=== PATIENT | male | born 1985 | race African-American/Black ===

== ENCOUNTER 2019-01-27 12:56 | Inpatient (IN) | payer OTHER ==
[2019-01-27] MEDS ORDERED: SODIUM CHLORIDE 0.9% 1,000 ML IV ONE (13:45)
[2019-01-27] MEDS ORDERED: KETOROLAC 30 MG/ML 1 ML VIAL IVP STA (13:45)
[2019-01-27] MEDS: SODIUM CHLORIDE 0.9% 1,000 ML IV SCH ×2 (14:13→23:38)
[2019-01-27 14:18] LABS: Basophils # (A) 0.1 k/uL (0-0.2); Basophils % (A) 1 %; Eosinophils # (A) 0.3 k/uL (0-0.7); Eosinophils % (A) 3 %; HCT 40.5 % (39.0-53.0); HGB 13.3 gm/dL (13.0-17.5); Lymphocytes # (A) 2.5 k/uL (1.0-4.8); Lymphocytes % (A) 25 %; MCH 31.7 pg (25.0-35.0); MCHC 32.8 g/dL (31.0-37.0); MCV 96.5 fL (80.0-100.0); Mean Platelet Volume 6.7; Monocytes # (A) 0.5 k/uL (0-1.0); Monocytes % (A) 5 %; Neutrophils # (A) 6.5 k/uL (1.3-7.7); Neutrophils % (A) 65 %; Platelet Count 458 k/uL (150-450); RDW 15.5 % (11.5-15.5)
[2019-01-27 14:30] LABS: ALT 18 U/L (21-72); AST 27 U/L (17-59); African American GFR (CKD) >90 (>60 ml/min/1.73 sqM); Albumin 3.9 g/dL (3.5-5.0); Alkaline Phosphatase 86 U/L (38-126); Anion Gap 7 mmol/L; Blood Urea Nitrogen 12 mg/dL (9-20); Calcium 9.5 mg/dL (8.4-10.2); Carbon Dioxide 24 mmol/L (22-30); Chloride 107 mmol/L (98-107); Glucose 102 mg/dL (74-99); Non-African American GFR(CKD) >90 (>60 ml/min/1.73 sqM); Potassium 4.5 mmol/L (3.5-5.1); Sodium 138 mmol/L (137-145); Total Bilirubin 0.2 mg/dL (0.2-1.3); Total Protein 7.3 g/dL (6.3-8.2)
--- NOTE | 2019-01-27 14:34 | ED ---
Wound/Laceration HPI - General Chief Complaint: Wound/Laceration Stated Complaint: rt foot infection Time Seen by Provider: 01/27/19 13:16 Source: patient, RN notes reviewed, old records reviewed Mode of arrival: ambulatory Limitations: no limitations - History of Present Illness Initial Comments: Patient is a 34-year-old male with a history of callus over his right foot. Patient reports his callus for quite some time. Patient reports over the past 3 weeks has noticed increased pain and swelling over the fifth metatarsal. Patient was sent from delivery table operator Dr. Rinaldi for concern for osteomyelitis. Patient is not a diabetic. He's had a history of chronic calluses and feet problems. He's had surgery on his feet before once by Dr. Barrera many years ago. Patient reports that he is unable to walk on his foot normally due to the pain and swelling. - Related Data Home Medications Medication Instructions Recorded Confirmed Cephalexin [Keflex] 500 mg PO Q6HR 01/27/19 01/27/19 Ibuprofen [Motrin Ib] 400 mg PO BID PRN 01/27/19 01/27/19 Allergies Allergy/AdvReac Type Severity Reaction Status Date / Time No Known Allergies Allergy Verified 01/27/19 14:21 Review of Systems ROS Statement: Those systems with pertinent positive or pertinent negative responses have been documented in the HPI. ROS Other: All systems not noted in ROS Statement are negative. Past Medical History Past Medical History: Hypertension History of Any Multi-Drug Resistant Organisms: None Reported Past Surgical History: Orthopedic Surgery Past Psychological History: No Psychological Hx Reported Smoking Status: Current every day smoker Past Alcohol Use History: Daily Past Drug Use History: Marijuana General Exam - General Exam Comments Initial Comments: This is a 34-year-old male. Alert and oriented. Limitations: no limitations General appearance: alert, in no apparent distress Head exam: Present: atraumatic, normocephalic, normal inspection Eye exam: Present: normal appearance ENT exam: Present: normal exam, mucous membranes moist Neck exam: Present: normal inspection. Absent: tenderness, meningismus, lymph adenopathy Respiratory exam: Present: normal lung sounds bilaterally. Absent: respiratory distress, wheezes, rales, rhonchi, stridor Cardiovascular Exam: Present: regular rate, normal rhythm, normal heart sounds. Absent: systolic murmur, diastolic murmur, rubs, gallop, clicks GI/Abdominal exam: Present: soft, normal bowel sounds. Absent: distended, tenderness, guarding, rebound, rigid Extremities exam: Present: full ROM, normal capillary refill. Absent: normal inspection, tenderness, pedal edema, joint swelling, calf tenderness Right Knee exam: Present: normal inspection, full ROM Lower Leg exam: Present: normal inspection, full ROM Ankle exam: Present: normal inspection, full ROM Foot/Toe exam: Present: swelling (over plantar 5th metatarsal ), erythema. Absent: normal inspection Gait: observed and limited by pain Psychiatric exam: Present: normal affect, normal mood Course Vital Signs 01/27/19 01/27/19 01/27/19 13:10 14:14 15:00 Temperature 98.7 F Pulse Rate 81 74 76 Respiratory 20 18 18 Rate Blood Pressure 150/81 120/90 117/77 O2 Sat by Pulse 99 98 98 Oximetry 01/27/19 16:21 Temperature 98.1 F Pulse Rate 69 Respiratory 18 Rate Blood Pressure 124/91 O2 Sat by Pulse 100 Oximetry Medical Decision Making - Medical Decision Making This is a 34-year-old male presents today for evaluation with complaints of right foot plantar aspect over the fifth metatarsal abscess or concern for infection. He was sent by podiatry for concern for osteomyelitis. This time Patient has a fluctuant area over the plantar aspect of the fifth metatarsal. All labs are reviewed and unremarkable. X-ray showed evidence of small foreign body with subcutaneous air. CT shows evidence of the plantar foot ulceration with fluid collection may be related to a small abscess measuring 3.1 cm. Pa tient at this times was started on Kefzol IV V. Patient case discussed with Alton Diane, recommended admit to general medicine with vascular and ortho along consult. Patient is agreeable to treatment plan. - Lab Data Result diagrams: 01/27/19 14:00 01/27/19 14:00 Lab Results 01/27/19 01/27/19 01/27/19 Range/Units 14:00 14:00 14:00 WBC 10.0 (3.8-10.6) k/uL RBC 4.20 L (4.30-5.90) m/uL Hgb 13.3 (13.0-17.5) gm/dL Hct 40.5 (39.0-53.0) % MCV 96.5 (80.0-100.0) fL MCH 31.7 (25.0-35.0) pg MCHC 32.8 (31.0-37.0) g/dL RDW 15.5 (11.5-15.5) % Plt Count 458 H (150-450) k/uL Neutrophils % 65 % Lymphocytes % 25 % Monocytes % 5 % Eosinophils % 3 % Basophils % 1 % Neutrophils # 6.5 (1.3-7.7) k/uL Lymphocytes # 2.5 (1.0-4.8) k/uL Monocytes # 0.5 (0-1.0) k/uL Eosinophils # 0.3 (0-0.7) k/uL Basophils # 0.1 (0-0.2) k/uL Sodium 138 (137-145) mmol/L Potassium 4.5 (3.5-5.1) mmol/L Chloride 107 (98-107) mmol/L Carbon Dioxide 24 (22-30) mmol/L Anion Gap 7 mmol/L BUN 12 (9-20) mg/dL Creatinine 0.59 L (0.66-1.25) mg/dL Est GFR (CKD-EPI)AfAm >90 (>60 ml/min/1.73 sqM) Est GFR (CKD-EPI)NonAf >90 (>60 ml/min/1.73 sqM) Glucose 102 H (74-99) mg/dL Plasma Lactic Acid Saravanan 1.5 (0.7-2.0) mmol/L Calcium 9.5 (8.4-10.2) mg/dL Total Bilirubin 0.2 (0.2-1.3) mg/dL AST 27 (17-59) U/L ALT 18 L (21-72) U/L Alkaline Phosphatase 86 (38-126) U/L C-Reactive Protein (<10.0) mg/L Total Protein 7.3 (6.3-8.2) g/dL Albumin 3.9 (3.5-5.0) g/dL 01/27/19 Range/Units 14:00 WBC (3.8-10.6) k/uL RBC (4.30-5.90) m/uL Hgb (13.0-17.5) gm/dL Hct (39.0-53.0) % MCV (80.0-100.0) fL MCH (25.0-35.0) pg MCHC (31.0-37.0) g/dL RDW (11.5-15.5) % Plt Count (150-450) k/uL Neutrophils % % Lymphocytes % % Monocytes % % Eosinophils % % Basophils % % Neutrophils # (1.3-7.7) k/uL Lymphocytes # (1.0-4.8) k/uL Monocytes # (0-1.0) k/uL Eosinophils # (0-0.7) k/uL Basophils # (0-0.2) k/uL Sodium (137-145) mmol/L Potassium (3.5-5.1) mmol/L Chloride (98-107) mmol/L Carbon Dioxide (22-30) mmol/L Anion Gap mmol/L BUN (9-20) mg/dL Creatinine (0.66-1.25) mg/dL Est GFR (CKD-EPI)AfAm (>60 ml/min/1.73 sqM) Est GFR (CKD-EPI)NonAf (>60 ml/min/1.73 sqM) Glucose (74-99) mg/dL Plasma Lactic Acid Saravanan (0.7-2.0) mmol/L Calcium (8.4-10.2) mg/dL Total Bilirubin (0.2-1.3) mg/dL AST (17-59) U/L ALT (21-72) U/L Alkaline Phosphatase (38-126) U/L C-Reactive Protein 7.0 (<10.0) mg/L Total Protein (6.3-8.2) g/dL Albumin (3.5-5.0) g/dL - Radiology Data Radiology results: report reviewed CT shows redemonstration of radiopaque foreign body with overlying fifth metatarsal have a plantar aspect the lateral foot ulceration underlying fluid collection which may be related to small abscess. No CT evidence of osteomyelitis.Foot x-ray shows 3 mm linear foreign body overlying the distal fifth metatarsal head on the AP view. A filling soft tissue swelling and subcutaneous emphysema on the fifth metatarsophalangeal joint of the right foot. Disposition Clinical Impression: Foot abscess Disposition: ADMITTED IP TO THIS [facility] Condition: Stable Additional Instructions: Patient advised close follow-up with orthopedic. Return to the emergency department if any alarming signs or symptoms occur. Is patient prescribed a controlled substance at d/c from ED?: No Referrals: Armaan Cedeño MD [Primary Care Provider] - 1-2 days Time of Disposition: 17:02
--- NOTE | 2019-01-27 14:35 | XR ---
EXAMINATION TYPE: XR foot complete RT DATE OF EXAM: 01/27/2019 CLINICAL HISTORY: Nonhealing ulcer of the right foot TECHNIQUE: Frontal, lateral, and oblique images of the right foot are obtained. COMPARISON: None FINDINGS: There is no acute fracture/dislocation evident in the right foot. The joint spaces in the right foot appear within normal limits. The overlying soft tissue appears unremarkable. There is fo christopher soft tissue swelling over the lateral and plantar surface of the fifth metatarsal phalangeal join t with punctate subcutaneous emphysema and 3 mm linear radiopaque foreign body overlying the distal m etatarsal head on the AP view. No periosteal reaction or cortical erosion. IMPRESSION: 3 mm linear foreign body overlying the distal fifth metatarsal head on the AP view. Overl rich soft tissue swelling and focus of subcutaneous emphysema are also seen surrounding the fifth met atarsophalangeal joint of the right foot.
--- NOTE | 2019-01-27 15:30 | CT ---
EXAMINATION TYPE: CT foot RT wo con DATE OF EXAM: 01/27/2019 COMPARISON: X-ray from the same day. HISTORY: right lateral foot pain, swelling CT DLP: 281.2 mGycm Automated exposure control for dose reduction was used. FINDINGS: There is a focal ulceration with soft tissue thickening seen beneath the fifth metatarsal head with u nderlying edema and small fluid collection measuring up to 3.1 cm seen on axial image 80 and sagittal image 60. There is redemonstration of linear density seen along the lateral and distal fifth metatar vanessa head measuring up to 0.3 cm and best seen on axial, coronal and sagittal images of the 69, 49 and 52 respectively. No evidence of radio destructive osseous process, but there is soft tissue swelling seen surrounding the linear density. No acute fracture or dislocation. Tendons and ligaments appear grossly intact. Ankle mortise is intact. IMPRESSION: REDEMONSTRATION OF RADIOPAQUE FOREIGN BODY SEEN OVERLYING THE FIFTH METATARSAL HEAD WITH PLANTAR ASPE CT LATERAL FOOT ULCERATION AND UNDERLYING FLUID COLLECTION WHICH MAY BE RELATED TO SMALL ABSCESS. NO CT EVIDENCE OF OSTEOMYELITIS.
[2019-01-27] MEDS ORDERED: ONDANSETRON 4 MG/2 ML VIAL IVP PRN (17:02)
[2019-01-27] MEDS ORDERED: NALOXONE 0.4 MG/ML 1 ML VIAL IV PRN (17:02)
[2019-01-27] MEDS ORDERED: IBUPROFEN 400 MG TAB PO PRN (17:02)
[2019-01-27] MEDS ORDERED: ACETAMINOPHEN TAB 325 MG TAB PO PRN (17:02)
[2019-01-27] MEDS ORDERED: VANCOMYCIN IV PER PHARMACY 1 EACH MISC MISCELLANE PRN (18:13)
[2019-01-27] MEDS ORDERED: HYDROcodone/APAP 7.5-325MG 1 EACH TAB PO PRN (18:15)
--- NOTE | 2019-01-27 18:19 | P.HPIM ---
History of Present Illness Patient is a 34-year-old very pleasant gentleman came in with complaints of a possible infection of the right foot. Patient had a callus there patient does have a flat foot patient started noticing swelling increasing pain and now found to have infection abscess. CAT scan and x-ray of the foot was opted which did show a foreign body in the fifth metatarsal area. She denied any fever chills patient had nausea vomiting abdominal pain patient does have history of essential hypertension. Patient was using Keflex which was given at [facility] a few days ago. There is a pattern body I'll also cover gram-negative and anaerobes with Zosyn patient will be started on vancomycin as well. Orthopedic surgery was consulted. Review of Systems REVIEW OF SYSTEMS: CONSTITUTIONAL: No fever, no malaise, no fatigue. HEENT: No recent visual problems or hearing problems. Denied any sore throat. CARDIOVASCULAR: No chest pain, orthopnea, PND, no palpitations, no syncope. PULMONARY: No shortness of breath, no cough, no hemoptysis. GASTROINTESTINAL: No diarrhea, no nausea, no vomiting, no abdominal pain. NEUROLOGICAL: No headaches, no weakness, no numbness. HEMATOLOGICAL: Denies any bleeding or petechiae. GENITOURINARY: Denies any burning micturition, frequency, or urgency. MUSCULOSKELETAL/RHEUMATOLOGICAL: As mentioned in HPI ENDOCRINE: Denies any polyuria or polydipsia. The rest of the 14-point review of systems is negative. Past Medical History Past Medical History: Hypertension History of Any Multi-Drug Resistant Organisms: None Reported Past Surgical History: Orthopedic Surgery Past Psychological History: No Psychological Hx Reported Smoking Status: Current every day smoker Past Alcohol Use History: Daily Past Drug Use History: Marijuana Medications and Allergies Home Medications Medication Instructions Recorded Confirmed Type Cephalexin [Keflex] 500 mg PO Q6HR 01/27/19 01/27/19 History Ibuprofen [Motrin Ib] 400 mg PO BID PRN 01/27/19 01/27/19 History Allergies Allergy/AdvReac Type Severity Reaction Status Date / Time No Known Allergies Allergy Verified 01/27/19 14:21 Physical Exam Vitals: Vital Signs Temp Pulse Resp BP Pulse Ox 01/27/19 16:21 98.1 F 69 18 124/91 100 01/27/19 15:00 76 18 117/77 98 01/27/19 14:14 74 18 120/90 98 01/27/19 13:10 98.7 F 81 20 150/81 99 Intake and Output 01/27/19 01/27/19 01/27/19 06:59 14:59 22:59 Other: Weight 77.111 kg PHYSICAL EXAMINATION: GENERAL: The patient is alert and oriented x3, not in any acute distress. Well developed, well nourished. HEENT: Pupils are round and equally reacting to light. EOMI. No scleral icterus. No conjunctival pallor. Normocephalic, atraumatic. No pharyngeal erythema. No thyromegaly. CARDIOVASCULAR: S1 and S2 present. No murmurs, rubs, or gallops. PULMONARY: Chest is clear to auscultation, no wheezing or crackles. ABDOMEN: Soft, nontender, nondistended, normoactive bowel sounds. No palpable organomegaly. MUSCULOSKELETAL: No joint swelling or deformity. EXTREMITIES: No cyanosis, clubbing, or pedal edema. Swelling on the plantar surface of the fifth metatarsal area significant tenderness to touch redness NEUROLOGICAL: Gross neurological examination did not reveal any focal deficits. SKIN: No rashes. Results CBC & Chem 7: 01/27/19 14:00 01/27/19 14:00 Labs: Abnormal Lab Results - Last 24 Hours (Table) 01/27/19 01/27/19 Range/Units 14:00 14:00 RBC 4.20 L (4.30-5.90) m/uL Plt Count 458 H (150-450) k/uL Creatinine 0.59 L (0.66-1.25) mg/dL Glucose 102 H (74-99) mg/dL ALT 18 L (21-72) U/L Assessment and Plan Plan: -Right foot abscess nondiabetic with a foreign body patient will be started on vancomycin and Zosyn, foreign body need to be removed and the patient's abscess need to be drained because of which I'll consult orthopedic surgery wound cultures will be obtained. -Step essential hypertension on any medication patient blood pressure is not elevated at this time my suspicion is low that patient has essential hypertension. -Pes planus. Patient was started on GI and DVT prophylaxis in spite of his age he may not move his leg much on the right side because of severe pain
[2019-01-27] MEDS: VANCOMYCIN 1,500 MG in SODIUM CHLORIDE 0.9% 250 ML IVPB SCH (19:27)
[2019-01-27] MEDS: NICOTINE 21MG/24HR PATCH TRANSDERM SCH (19:27)
[2019-01-27] MEDS: KETOROLAC 30 MG/ML 1 ML VIAL IVP PRN (22:44)
[2019-01-27] MEDS: PIPERACILLIN-TAZOBACTAM 3.375 GM in SODIUM CHLORIDE 0.9% 100 ML IVPB SCH (23:38)
[2019-01-27] MEDS: HEPARIN SODIUM,PORCINE 5,000 UNIT/ML 1 ML VIAL SQ SCH (23:43)
[2019-01-28] MEDS: VANCOMYCIN 1,500 MG in SODIUM CHLORIDE 0.9% 250 ML IVPB SCH ×3 (03:47→22:42)
[2019-01-28] MEDS: PIPERACILLIN-TAZOBACTAM 3.375 GM in SODIUM CHLORIDE 0.9% 100 ML IVPB SCH ×3 (06:08→22:42)
[2019-01-28] MEDS: PANTOPRAZOLE 40 MG/10 ML VIAL IV SCH (07:43)
--- NOTE | 2019-01-28 07:43 | P.CNOR ---
History of Present Illness - [facility] Consult date: 01/28/19 Consult reason: other History of present illness: Patient is a 34-year-old male who presented to [facility] yesterday with regards to a questionable right foot infection. Patient has been doing with admission to this foot for about 3 weeks now. He has noticed a callus on the plantar aspect of the fifth metatarsal region. Patient is followed by podiatry, and does have chronic foot problems. 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 Patient was admitted to the hospital under internal medicine with our orthopedic team on consult for the right foot. X-rays demonstrated a possible foreign body in the fifth metatarsal region. Patient does work at [employer], he denies any recent trauma. Patient cannot remember stepping on anything involving the right foot. Patient was evaluated is at bedside, he is resting comfortably. He notes most discomfort when he walks on the right foot region. He denies any ankle pain, knee pain, hip pain. Denies any previous orthopedic surgeon involving the right foot. Review of Systems Constitutional: Reports as per [facility] Past Medical History Past Medical History: Hypertension History of Any Multi-Drug Resistant Organisms: None Reported Past Surgical History: Orthopedic Surgery Additional Past Surgical History / Comment(s): previous left foot sx Past Anesthesia/Blood Transfusion Reactions: No Reported Reaction Past Psychological History: No Psychological Hx Reported Smoking Status: Current every day smoker Past Alcohol Use History: Daily Past Drug Use History: Marijuana - Past Family History Mother Family Medical History: Hypertension Medications and Allergies Home Medications Medication Instructions Recorded Confirmed Type Cephalexin [Keflex] 500 mg PO Q6HR 01/27/19 01/27/19 History Ibuprofen [Motrin Ib] 400 mg PO BID PRN 01/27/19 01/27/19 History Allergies Allergy/AdvReac Type Severity Reaction Status Date / Time No Known Allergies Allergy Verified 01/27/19 14:21 Physical Examination Right lower extremity: Small ulcer noted on the plantar aspect of the right foot, near the fifth metatarsal region. There is a skin opening present, no active drainage. Soft tissue swelling is present in the area. He is tender with palpation in the area. No obvious foreign bodies visualized on exam. Patient is able to wiggle the toes without difficulty. Sensory exam to light touch is intact. His calf is soft, no tenderness with palpation. Plantar flexion and dorsiflexion of the ankle are intact. Results - Labs Labs: Abnormal Lab Results - Last 24 Hours (Table) 01/27/19 01/27/19 Range/Units 14:00 14:00 RBC 4.20 L (4.30-5.90) m/uL Plt Count 458 H (150-450) k/uL Creatinine 0.59 L (0.66-1.25) mg/dL Glucose 102 H (74-99) mg/dL ALT 18 L (21-72) U/L H & H 01/27/19 Range/Units 14:00 Hgb 13.3 (13.0-17.5) gm/dL Hct 40.5 (39.0-53.0) % Result Diagrams: 01/27/19 14:00 01/27/19 14:00 - Diagnostic results Ankle/Foot x-ray: report reviewed, image reviewed Ankle/Foot MRI: report reviewed, image reviewed Assessment and Plan Plan: Imaging: Multiple images of the right lower extremity were obtained, including x-rays and computed tomography scan. Images demonstrated no acute fractures or dislocations. Computed tomography scan reported as no fluid collection in the fifth metatarsal region, with a foreign body present. Assessment: 1. Right foot abscess 2. Right foot foreign body Plan: Dr. Scanlon was available today to examine the patient and discussed treatment options. With patients physical exam findings and imaging studies, recommended incision and drainage with irrigation and debridement of the right foot. Patient will be made nothing by mouth this morning with plan for surgery later this afternoon. Obtain consent Nothing by mouth Medical recommendations Further recommendations Time with Patient: Less than 30
[2019-01-28] MEDS: HEPARIN SODIUM,PORCINE 5,000 UNIT/ML 1 ML VIAL SQ SCH ×2 (07:45→15:43)
[2019-01-28] MEDS: NICOTINE 21MG/24HR PATCH TRANSDERM SCH ×2 (07:53→22:42)
[2019-01-28] MEDS: SODIUM CHLORIDE 0.9% 1,000 ML IV SCH ×2 (07:57→21:25)
--- NOTE | 2019-01-28 12:11 | P.CONS ---
History of Present Illness - Reason for Consult Consult date: 01/28/19 Foot abscess - History of Present Illness This is a 34-year-old -Bhut[place] male gives history that he has had a long-standing callus to the right plantar foot. His states that about 3 weeks ago he was getting a pedicure and the core came out and it started draining which is subsequent stopped. Patient then developed increasing size with swelling and pain to the right foot. Patient came into [facility] for evaluation. CAT scan of the right foot revealed a radiopaque foreign body seen overlying the fifth metatarsal head with plantar aspect lateral foot ulceration and underlying fluid collection which may be related to small abscess. No evidence of osteomyelitis. Patient was afebrile, white count 10.0, creatinine 0.59, albumin 3.9. Patient was recently seen at [facility] and completed 67 day course of Keflex with no improvement. He then presented to [facility] emergency center yesterday. Blood cultures status received. Patient is currently on Zosyn and vancomycin. Tetanus status was updated approximately one year ago. Patient denies history of diabetes. He does smoke half a pack per day for 10 years and daily marijuana use. He also has a 4 beer per day alcohol intake. Review of Systems Constitutional: Denies anorexia, Denies chills, Denies fatigue, Denies fever, Denies lethargy, Denies malaise, Denies weakness Ears, nose, mouth and throat: Denies dysphagia, Denies nasal congestion, Denies nasal discharge, Denies vertigo Cardiovascular: Denies chest pain, Denies decreased exercise tolerance, Denies dyspnea on exertion, Denies edema, Denies leg edema, Denies lightheadedness, Denies syncope Respiratory: Denies congestion, Denies cough, Denies cough with sputum, Denies dyspnea, Denies hemoptysis, Denies home oxygen, Denies wheezing Gastrointestinal: Denies abdominal pain, Denies loss of appetite, Denies nausea, Denies vomiting Genitourinary: Denies dysuria, Denies urinary retention Musculoskeletal: Denies frequent falls, Denies muscle cramps, Denies myalgias Musculoskeletal: right: foot pain Integumentary: Reports wounds, Denies pruritus, Denies rash Neurological: Denies ataxia, Denies change in mentation, Denies numbness, Denies weakness Psychiatric: Denies anxiety, Denies depression Endocrine: Denies fatigue, Denies weight change Past Medical History Past Medical History: Hypertension History of Any Multi-Drug Resistant Organisms: None Reported Past Surgical History: Orthopedic Surgery Additional Past Surgical History / Comment(s): previous left foot sx Past Anesthesia/Blood Transfusion Reactions: No Reported Reaction Past Psychological History: No Psychological Hx Reported Smoking Status: Current every day smoker Past Alcohol Use History: Daily Additional Past Alcohol Use History / Comment(s): She is a smoker of half pack per day for 10 years. He uses marijuana on a daily basis. He denies any illicit drug use. He does drink alcohol 4 beers per day. He lives at home with his . He does have a Paz in the home. He enjoys grilling, fishing and yard work. No recent travel. 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 Past Drug Use History: Marijuana - Past Family History Mother Family Medical History: Hypertension Medications and Allergies Home Medications Medication Instructions Recorded Confirmed Type Cephalexin [Keflex] 500 mg PO Q6HR 01/27/19 01/27/19 History Ibuprofen [Motrin Ib] 400 mg PO BID PRN 01/27/19 01/27/19 History Allergies Allergy/AdvReac Type Severity Reaction Status Date / Time No Known Allergies Allergy Verified 01/27/19 14:21 Physical Exam Vitals: Vital Signs Temp Pulse Pulse Resp BP BP Pulse Ox 01/28/19 10:06 97.6 F 72 18 125/84 99 01/28/19 05:00 97.6 F 72 18 125/84 99 01/27/19 21:21 98.3 F 77 17 109/70 99 01/27/19 18:00 97.9 F 74 18 138/87 99 01/27/19 16:21 98.1 F 69 18 124/91 100 01/27/19 15:00 76 18 117/77 98 01/27/19 14:14 74 18 120/90 98 01/27/19 13:10 98.7 F 81 20 150/81 99 Intake and Output 01/27/19 01/28/19 01/28/19 22:59 06:59 14:59 Intake Total 450 Balance 450 Intake: Oral 450 Other: # Voids 1 2 1 Gen: This is a 34-year-old male. He is sitting on the edge of the bed and appears become febrile and in no acute distress. HEENT: Head is atraumatic, normocephalic. Pupils equal, round. Sclerae is anicteric. NECK: Supple. No JVD. No lymphadenopathy. No thyromegaly. LUNGS: Clear to auscultation. No wheezes or rhonchi. No intercostal retractions. HEART: Regular rate and rhythm. No murmur. ABDOMEN: Soft. Bowel sounds are present. No masses. No tenderness. EXTREMITIES: No pedal edema. No calf tenderness. Dorsalis pedis +2 bilateral. On the left foot, patient has a thick callus formation on the lateral distal fifth metatarsal. On the right foot patient has an open area on the plantar surface at the distal fifth metatarsal no active draining. There is edema. No significant redness. NEUROLOGICAL: Patient is awake, alert and oriented x3. Cranial nerves 2 through 12 are grossly intact. Results Results: Laboratory Results WBC 10.0 k/uL (3.8-10.6) 01/27/19 14:00 RBC 4.20 m/uL (4.30-5.90) L 01/27/19 14:00 Hgb 13.3 gm/dL (13.0-17.5) 01/27/19 14:00 Hct 40.5 % (39.0-53.0) 01/27/19 14:00 MCV 96.5 fL (80.0-100.0) 01/27/19 14:00 MCH 31.7 pg (25.0-35.0) 01/27/19 14:00 MCHC 32.8 g/dL (31.0-37.0) 01/27/19 14:00 RDW 15.5 % (11.5-15.5) 01/27/19 14:00 Plt Count 458 k/uL (150-450) H 01/27/19 14:00 Neutrophils % 65 % 01/27/19 14:00 Lymphocytes % 25 % 01/27/19 14:00 Monocytes % 5 % 01/27/19 14:00 Eosinophils % 3 % 01/27/19 14:00 Basophils % 1 % 01/27/19 14:00 Neutrophils # 6.5 k/uL (1.3-7.7) 01/27/19 14:00 Lymphocytes # 2.5 k/uL (1.0-4.8) 01/27/19 14:00 Monocytes # 0.5 k/uL (0-1.0) 01/27/19 14:00 Eosinophils # 0.3 k/uL (0-0.7) 01/27/19 14:00 Basophils # 0.1 k/uL (0-0.2) 01/27/19 14:00 Sodium 138 mmol/L (137-145) 01/27/19 14:00 Potassium 4.5 mmol/L (3.5-5.1) 01/27/19 14:00 Chloride 107 mmol/L (98-107) 01/27/19 14:00 Carbon Dioxide 24 mmol/L (22-30) 01/27/19 14:00 Anion Gap 7 mmol/L 01/27/19 14:00 BUN 12 mg/dL (9-20) 01/27/19 14:00 Creatinine 0.59 mg/dL (0.66-1.25) L 01/27/19 14:00 Est GFR (CKD-EPI)AfAm >90 (>60 ml/min/1.73 sqM) 01/27/19 14:00 Est GFR (CKD-EPI)NonAf >90 (>60 ml/min/1.73 sqM) 01/27/19 14:00 Glucose 102 mg/dL (74-99) H 01/27/19 14:00 Plasma Lactic Acid Saravanan 1.5 mmol/L (0.7-2.0) 01/27/19 14:00 Calcium 9.5 mg/dL (8.4-10.2) 01/27/19 14:00 Total Bilirubin 0.2 mg/dL (0.2-1.3) 01/27/19 14:00 AST 27 U/L (17-59) 01/27/19 14:00 ALT 18 U/L (21-72) L 01/27/19 14:00 Alkaline Phosphatase 86 U/L (38-126) 01/27/19 14:00 C-Reactive Protein 7.0 mg/L (<10.0) 01/27/19 14:00 Total Protein 7.3 g/dL (6.3-8.2) 01/27/19 14:00 Albumin 3.9 g/dL (3.5-5.0) 01/27/19 14:00 CBC & Chem 7: 01/27/19 14:00 01/27/19 14:00 Labs: Abnormal Lab Results - Last 24 Hours (Table) 01/27/19 01/27/19 Range/Units 14:00 14:00 RBC 4.20 L (4.30-5.90) m/uL Plt Count 458 H (150-450) k/uL Creatinine 0.59 L (0.66-1.25) mg/dL Glucose 102 H (74-99) mg/dL ALT 18 L (21-72) U/L Assessment and Plan Plan: This is a 34-year-old male presented to hospital with ulceration to the right plantar foot at the fifth metatarsal. Imaging has revealed a foreign body. Patient is scheduled for I&D and foreign body removal this evening. He is currently on Zosyn and vancomycin. He did fail outpatient treatment with Keflex. Blood culture is in progress. Continue supportive care. Further medications as patient regresses. The above dictated assessment and findings were discussed with Dr. Ansari. The impression and plan of care have been directed as dictated. Em Velazquez nurse practitioner acting as scribe for Dr. Ansari.
--- NOTE | 2019-01-28 17:44 | P.PN ---
Subjective 34-year-old pleasant gentleman was admitted for a foreign body in the foot and the abscess in the foot and patient is on vancomycin and Zosyn at this time patient will undergo incision and drainage and foreign body removal Constitutional: Denied any fatigue denied any fever. Cardio vascular: denied any chest pain, palpitations Gastrointestinal denied any nausea vomiting Pulmonary: Denied any shortness of breath cough Neurologic denied any new focal deficits All inpatient medications were reviewed and appropriate changes in these medications as dictated in the interval history and assessment and plan. Objective - Vital Signs Vital signs: Vital Signs Temp 98.4 F 01/28/19 12:40 Pulse 73 01/28/19 12:40 Resp 16 01/28/19 12:40 BP 117/78 01/28/19 12:40 Pulse Ox 99 01/28/19 12:40 Intake & Output 01/27/19 01/28/19 01/28/19 18:59 06:59 18:59 Intake Total 450 Balance 450 Weight 77.111 kg Intake: Oral 450 Other: # Voids 2 2 - Exam PHYSICAL EXAMINATION: GENERAL: The patient is alert and oriented x3, not in any acute distress. Well developed, well nourished. HEENT: Pupils are round and equally reacting to light. EOMI. No scleral icterus. No conjunctival pallor. Normocephalic, atraumatic. No pharyngeal erythema. No thyromegaly. CARDIOVASCULAR: S1 and S2 present. No murmurs, rubs, or gallops. PULMONARY: Chest is clear to auscultation, no wheezing or crackles. ABDOMEN: Soft, nontender, nondistended, normoactive bowel sounds. No palpable organomegaly. MUSCULOSKELETAL: No joint swelling or deformity. EXTREMITIES: No cyanosis, clubbing, or pedal edema. Swelling on the plantar surface of the fifth metatarsal area significant tenderness to touch redness NEUROLOGICAL: Gross neurological examination did not reveal any focal deficits. SKIN: No rashes. - Labs CBC & Chem 7: 01/27/19 14:00 01/27/19 14:00 Labs: Microbiology - Last 24 Hours (Table) 01/27/19 14:00 Blood Culture - Preliminary Blood No Growth after 24 hours Assessment and Plan Plan: -Right foot abscess nondiabetic with a foreign body patient will be started on vancomycin and Zosyn, foreign body need to be removed and the patient's abscess need to be drained because of which I'll consult orthopedic surgery wound cultures will be obtained. -Step essential hypertension on any medication patient blood pressure is not elevated at this time my suspicion is low that patient has essential hypertension. -Pes planus. Patient was started on GI and DVT prophylaxis in spite of his age he may not move his leg much on the right side because of severe pain
[2019-01-28] MEDS ORDERED: LACTATED RINGERS 1,000 ML IV ONE ×2 (18:10)
[2019-01-28] MEDS ORDERED: LIDOCAINE 1% INJ 10MG/ML (20 ML MDV) ONE (18:21)
[2019-01-28] MEDS ORDERED: DEXAMETHASONE SOD PHOS (MDV) 100 MG/10 ML VIAL ONE (18:21)
[2019-01-28] MEDS ORDERED: fentaNYL (PF) 50 MCG/ML 2 ML AMP ONE (18:21)
[2019-01-28] MEDS ORDERED: PROPOFOL 10 MG/ML 20 ML VIAL IV ONE (18:21)
[2019-01-28] MEDS ORDERED: VANCOMYCIN TROUGH DUE 1 EACH MISC MISCELLANE ONE (19:00)
--- NOTE | 2019-01-28 19:15 | P.OP ---
Date of Procedure: 01/28/19 Preoperative Diagnosis: Right lateral forefoot abscess Postoperative Diagnosis: Same Procedure(s) Performed: Incision and drainage with irrigation and debridement right plantar lateral forefoot abscess Anesthesia: ROSEMARIE Surgeon: Bhavin Scanlon Cigar Head Piercer #1: Eulogio Diane Estimated Blood Loss (ml): 10 Pathology: other (Deep cultures) Condition: stable Disposition: PACU Indications for Procedure: The patient's a 34-year-old male who presents with increasing right lateral forefoot pain, swelling, and drainage. Clinically he is noted of evidence of an abscess of the plantar lateral right forefoot. A discussion of the risks and benefits of operative intervention was made with the patient. He doesn't recall sustaining injury. Specific risks of this procedure to include persistence of infection and need for subsequent procedures was discussed. Informed consent was obtained. Operative Findings: As below Description of Procedure: The patient was brought to the operating room, and after induction of general anesthesia the right lower extremity was prepped and draped in normal fashion. The fluctuant area over the plantar aspect the right lateral forefoot directly under the fifth metatarsal phalangeal joint was then opened. A 2 cm incision was made. He had significant hypertrophic callus. The subcutaneous tissues were divided sharply. A large amount of purulence was expressed. Deep cultures were obtained. The hypertrophic callus was removed. I explored the soft tissues and this does not appear to extend into the metatarsophalangeal joint. After extensive evaluation, no distinct foreign body was found. Copious irrigation was performed utilizing normal saline and a bulb syringe. The necrotic wound edges were debrided sharply with a scalpel. The skin was loosely reapproximated with simple 3-0 nylon suture. A sterile dressing was applied. The patient was then awoken from general anesthesia and transferred to recovery room in good condition. Blood loss was estimated 10 mL. case were incurred. Sponge and needle counts were correct in the case.
[2019-01-28] MEDS ORDERED: HYDROmorphone 0.5 MG/0.5 ML SYRINGE IVP PRN (19:18)
[2019-01-28] MEDS ORDERED: HYDROmorphone 1 MG/ML 1 ML SYRINGE IVP ONE ×4 (19:25→19:50)
[2019-01-28] MEDS ORDERED: MEPERIDINE 50 MG/ML SYRINGE IVP ONE (19:35)
[2019-01-28] MEDS ORDERED: MEPERIDINE 50 MG/ML SYRINGE SQ ONE (19:40)
[2019-01-28] MEDS ORDERED: SODIUM CHLORIDE 0.9% 1,000 ML IV ONE ×2 (20:02)
[2019-01-28] MEDS: traMADol 50 MG TAB PO SCH (21:25)
[2019-01-28] MEDS: HYDROmorphone 1 MG/ML 1 ML SYRINGE IVP PRN (22:44)
[2019-01-29] MEDS: HEPARIN SODIUM,PORCINE 5,000 UNIT/ML 1 ML VIAL SQ SCH ×4 (00:04→23:32)
--- NOTE | 2019-01-29 00:31 | P.CON ---
Consult Note - . Consult date: 01/28/19 Assessment/Plan:: This is a 34-year-old -Italian male gives history that he has had a long-standing callus to the right plantar foot. His states that about 3 weeks ago he was getting a pedicure and the core came out and it started draining which is subsequent stopped. Patient then developed increasing size with swelling and pain to the right foot. Patient came into [facility] emergency center for evaluation. CAT scan of the right foot revealed a radiopaque foreign body seen overlying the fifth metatarsal head with plantar aspect lateral foot ulceration and underlying fluid collection which may be related to small abscess. No evidence of osteomyelitis. Patient was afebrile, white count 10.0, creatinine 0.59, albumin 3.9. Patient was recently seen at [facility] and completed 67 day course of Keflex with no improvement. He then presented to [facility] emergency center yesterday. Blood cultures status received. Patient is currently on Zosyn and vancomycin. Tetanus status was updated approximately one year ago. Patient denies history of diabetes. He does smoke half a pack per day for 10 years and daily marijuana use. He also has a 4 beer per day alcohol intake.Please see the consult note is dictated by nurse practitioner Mrs. Em Velazquez Pleasant gentleman works at the local [employer], works 12 hour shifts often 6-7 days per week. Developed the pain and swelling to the plantar surface of the right foot at his site of chronic callus formation. As noted foreign-body has been found and by x-ray evaluation appears to be metallic in nature. He will go to the operating room today for incision and drainage, removal of the foreign body and deep cultures. Which will help us determine the course of antibiotic therapy at discharge. The patient does have evidence of some mild deformity to his feet resulting him walking in the lateral surface of the foot which is why such significant calluses formed. Once he is well with do well to go to an web press roll tender to have inserts developed to try to shift weight back to the first metatarsal head to prevent further difficulties in the future. Please see the consult note is dictated by nurse practitioner Mrs. Em Velazquez.
[2019-01-29] MEDS: KETOROLAC 30 MG/ML 1 ML VIAL IVP PRN (00:48)
[2019-01-29] MEDS: PIPERACILLIN-TAZOBACTAM 3.375 GM in SODIUM CHLORIDE 0.9% 100 ML IVPB SCH ×3 (04:05→21:08)
[2019-01-29] MEDS: VANCOMYCIN 1,500 MG in SODIUM CHLORIDE 0.9% 250 ML IVPB SCH ×3 (04:05→21:06)
[2019-01-29] MEDS: SODIUM CHLORIDE 0.9% 1,000 ML IV SCH ×2 (06:52→16:09)
[2019-01-29] MEDS: HYDROmorphone 1 MG/ML 1 ML SYRINGE IVP PRN (06:53)
[2019-01-29 07:28] LABS: African American GFR (CKD) >90 (>60 ml/min/1.73 sqM); Non-African American GFR(CKD) >90 (>60 ml/min/1.73 sqM)
[2019-01-29] MEDS: PANTOPRAZOLE 40 MG/10 ML VIAL IV SCH (09:13)
[2019-01-29] MEDS: traMADol 50 MG TAB PO SCH ×4 (09:14→21:13)
[2019-01-29] MEDS: NICOTINE 21MG/24HR PATCH TRANSDERM SCH (09:14)
--- NOTE | 2019-01-29 09:55 | P.PN ---
Subjective Progress Note Date: 01/29/19 Principal diagnosis: Status post incision and drainage with irrigation and debridement right foot abscess Patient evaluated at bedside, he has family present. He is resting comfortably. His pain is well-controlled at this time. Initial postoperative management remains a good position and condition. He denies any fevers or chills at this time. Objective - Vital Signs Vital signs: Vital Signs Temp 98.6 F 01/29/19 07:00 Pulse 74 01/29/19 07:00 Resp 16 01/29/19 07:00 BP 123/80 01/29/19 07:00 Pulse Ox 97 01/29/19 07:00 Intake & Output 01/28/19 01/29/19 01/29/19 18:59 06:59 18:59 Intake Total 600 1850 0 Output Total 10 Balance 600 1840 0 Intake: IV 600 400 Intake, IV Titration 1450 Amount Piperacillin-Tazobactam 3 100 .375 gm In Sodium Chloride 0.9% 100 ml @ 25 mls/hr IVPB Q8H [facility]ELVI Rx#: [id number] Sodium Chloride 0.9% 1, 1100 000 ml @ 100 mls/hr IV . Q10H [facility]VI Rx#:[id number] Vancomycin 1,500 mg In 250 Sodium Chloride 0.9% 250 ml @ 125 mls/hr IVPB Q8H [facility]VI Rx#:[id number] Oral 0 Output: Estimated Blood Loss 10 Other: # Voids 2 - Exam Right lower extremity: Postoperative bandages in good position and condition, no active drainage visualized. He is able to wiggle toes and no difficulty. His calf is soft, no tenderness with palpation. His sensory exam to light touch proximal distal to the bandage are intact. - Labs CBC & Chem 7: 01/27/19 14:00 01/29/19 06:48 Labs: Microbiology - Last 24 Hours (Table) 01/28/19 19:03 Gram Stain - Preliminary Foot - Right Wound Culture - Preliminary 01/28/19 19:03 Anaerobic Culture - Preliminary Foot - Right 01/27/19 14:00 Blood Culture - Preliminary Blood No Growth after 24 hours Assessment and Plan Plan: Assessment: 1. Postop day #1 status post incision and drainage with irrigation and debridement right foot abscess Plan: We'll leave initial postoperative bandage on for another day, keep foot elevated all times Nonweightbearing right lower extremity, utilize crutches Pain control, continue to utilize oral medication, try to avoid IV narcotics GI and DVT prophylaxis, continue current medication Awaiting culture results Other medical assembler recommendations Further recommendations to follow Time with Patient: Less than 30
--- NOTE | 2019-01-29 12:28 | P.PN ---
Subjective 34-year-old pleasant gentleman was admitted for a foreign body in the foot and the abscess in the foot and patient is on vancomycin and Zosyn at this time patient will undergo incision and drainage and foreign body removal 01/29/2019 patient underwent incision and drainage no foreign body was found patient is being can urine antibiotics awaiting wound cultures Constitutional: Denied any fatigue denied any fever. Cardio vascular: denied any chest pain, palpitations Gastrointestinal denied any nausea vomiting Pulmonary: Denied any shortness of breath cough Neurologic denied any new focal deficits All inpatient medications were reviewed and appropriate changes in these medications as dictated in the interval history and assessment and plan. Objective - Vital Signs Vital signs: Vital Signs Temp 98.6 F 01/29/19 07:00 Pulse 74 01/29/19 07:00 Resp 16 01/29/19 07:00 BP 123/80 01/29/19 07:00 Pulse Ox 97 01/29/19 07:00 Intake & Output 01/28/19 01/29/19 01/29/19 18:59 06:59 18:59 Intake Total 600 1850 0 Output Total 10 Balance 600 1840 0 Intake: IV 600 400 Intake, IV Titration 1450 Amount Piperacillin-Tazobactam 3 100 .375 gm In Sodium Chloride 0.9% 100 ml @ 25 mls/hr IVPB Q8H [facility]VI Rx#: [id number] Sodium Chloride 0.9% 1, 1100 000 ml @ 100 mls/hr IV . Q10H [facility] Rx#:[id number] Vancomycin 1,500 mg In 250 Sodium Chloride 0.9% 250 ml @ 125 mls/hr IVPB Q8H [facility]VI Rx#:[id number] Oral 0 Output: Estimated Blood Loss 10 Other: # Voids 2 - Exam PHYSICAL EXAMINATION: GENERAL: The patient is alert and oriented x3, not in any acute distress. Well developed, well nourished. HEENT: Pupils are round and equally reacting to light. EOMI. No scleral icterus. No conjunctival pallor. Normocephalic, atraumatic. No pharyngeal erythema. No thyromegaly. CARDIOVASCULAR: S1 and S2 present. No murmurs, rubs, or gallops. PULMONARY: Chest is clear to auscultation, no wheezing or crackles. ABDOMEN: Soft, nontender, nondistended, normoactive bowel sounds. No palpable organomegaly. MUSCULOSKELETAL: No joint swelling or deformity. EXTREMITIES: No cyanosis, clubbing, or pedal edema. postsurgically pack right foot NEUROLOGICAL: Gross neurological examination did not reveal any focal deficits. SKIN: No rashes. - Labs CBC & Chem 7: 01/27/19 14:00 01/29/19 06:48 Labs: Microbiology - Last 24 Hours (Table) 01/28/19 19:03 Gram Stain - Preliminary Foot - Right Wound Culture - Preliminary 01/28/19 19:03 Anaerobic Culture - Preliminary Foot - Right 01/27/19 14:00 Blood Culture - Preliminary Blood No Growth after 24 hours Assessment and Plan Plan: -Right foot abscess nondiabetic patient is status post incision and drainage presently on vancomycin and Zosyn and awaiting wound cultures. No foreign body was found may not need Zosyn at this time - essential hypertension, patient does not appear to have essential hypertension not requiring medications -Pes planus. Patient was started on GI and DVT prophylaxis in spite of his age he may not move his leg much on the right side because of severe pain
[2019-01-30] MEDS: SODIUM CHLORIDE 0.9% 1,000 ML IV SCH ×2 (00:29→12:54)
[2019-01-30] MEDS: VANCOMYCIN 1,500 MG in SODIUM CHLORIDE 0.9% 250 ML IVPB SCH ×3 (04:45→19:39)
[2019-01-30] MEDS: PIPERACILLIN-TAZOBACTAM 3.375 GM in SODIUM CHLORIDE 0.9% 100 ML IVPB SCH ×2 (04:54→13:12)
[2019-01-30 07:08] LABS: African American GFR (CKD) >90 (>60 ml/min/1.73 sqM); Anion Gap 4 mmol/L; Blood Urea Nitrogen 6 mg/dL (9-20); Calcium 8.7 mg/dL (8.4-10.2); Carbon Dioxide 27 mmol/L (22-30); Chloride 109 mmol/L (98-107); Glucose 92 mg/dL (74-99); Non-African American GFR(CKD) >90 (>60 ml/min/1.73 sqM); Potassium 3.7 mmol/L (3.5-5.1); Sodium 140 mmol/L (137-145)
[2019-01-30] MEDS: HEPARIN SODIUM,PORCINE 5,000 UNIT/ML 1 ML VIAL SQ SCH ×3 (08:21→23:53)
[2019-01-30] MEDS: PANTOPRAZOLE 40 MG TABLET PO SCH (08:21)
[2019-01-30] MEDS: NICOTINE 21MG/24HR PATCH TRANSDERM SCH (08:21)
[2019-01-30] MEDS: traMADol 50 MG TAB PO SCH ×4 (08:22→21:50)
--- NOTE | 2019-01-30 10:54 | P.PN ---
Subjective Progress Note Date: 01/30/19 Principal diagnosis: Status post incision and drainage with irrigation and debridement right foot abscess Patient evaluated at bedside, he has family present. He is resting comfortably. His pain is well-controlled at this time. He denies any fevers or chills at this time. Objective - Vital Signs Vital signs: Vital Signs Temp 97.8 F 01/30/19 07:00 Pulse 65 01/30/19 07:00 Resp 16 01/30/19 08:00 BP 143/87 01/30/19 07:00 Pulse Ox 100 01/30/19 07:00 Intake & Output 01/29/19 01/30/19 01/30/19 18:59 06:59 18:59 Intake Total 222 350 Balance 222 350 Intake: Intake, IV Titration 350 Amount Piperacillin-Tazobactam 3 100 .375 gm In Sodium Chloride 0.9% 100 ml @ 25 mls/hr IVPB Q8H [facility]VI Rx#: [id number] Vancomycin 1,500 mg In 250 Sodium Chloride 0.9% 250 ml @ 125 mls/hr IVPB Q8H [facility]VI Rx#:[id number] Oral 222 Other: # Voids 1 1 - Exam Right lower extremity: Postoperative bandages removed, no active drainage present. Stitches are all in good position. He is able to wiggle toes and no difficulty. His calf is soft, no tenderness with palpation. His sensory exam to light touch proximal distal to the bandage are intact. - Labs CBC & Chem 7: 01/27/19 14:00 01/30/19 06:42 Labs: Abnormal Lab Results - Last 24 Hours (Table) 01/30/19 Range/Units 06:42 Chloride 109 H (98-107) mmol/L BUN 6 L (9-20) mg/dL Microbiology - Last 24 Hours (Table) 01/27/19 14:00 Blood Culture - Preliminary Blood No Growth after 48 hours 01/28/19 19:03 Gram Stain - Preliminary Foot - Right Wound Culture - Preliminary Assessment and Plan Plan: Assessment: 1. Postop day #2 status post incision and drainage with irrigation and debridement right foot abscess Plan: Daily dressing changes Nonweightbearing right lower extremity, utilize crutches Pain control, continue to utilize oral medication, try to avoid IV narcotics GI and DVT prophylaxis, continue current medication Waiting on culture results Other medical authorization specialist recommendations Further recommendations to follow Time with Patient: Less than 30
--- NOTE | 2019-01-30 13:36 | P.PN ---
Subjective 34-year-old pleasant gentleman was admitted for a foreign body in the foot and the abscess in the foot and patient is on vancomycin and Zosyn at this time patient will undergo incision and drainage and foreign body removal 01/29/2019 patient underwent incision and drainage no foreign body was found patient is being can urine antibiotics awaiting wound cultures 01/30/2019 Wound cultures are not available yet. Antibiotic as per wound cultures. Patient related to follow with the podiatry after discharge. Constitutional: Denied any fatigue denied any fever. Cardio vascular: denied any chest pain, palpitations Gastrointestinal denied any nausea vomiting Pulmonary: Denied any shortness of breath cough Neurologic denied any new focal deficits All inpatient medications were reviewed and appropriate changes in these medications as dictated in the interval history and assessment and plan. Objective - Vital Signs Vital signs: Vital Signs Temp 97.8 F 01/30/19 07:00 Pulse 65 01/30/19 07:00 Resp 16 01/30/19 08:00 BP 143/87 01/30/19 07:00 Pulse Ox 100 01/30/19 07:00 Intake & Output 01/29/19 01/30/19 01/30/19 18:59 06:59 18:59 Intake Total 222 350 Balance 222 350 Intake: Intake, IV Titration 350 Amount Piperacillin-Tazobactam 3 100 .375 gm In Sodium Chloride 0.9% 100 ml @ 25 mls/hr IVPB Q8H MELVI Rx#: [id number] Vancomycin 1,500 mg In 250 Sodium Chloride 0.9% 250 ml @ 125 mls/hr IVPB Q8H MELVI Rx#:[id number] Oral 222 Other: # Voids 1 1 - Exam PHYSICAL EXAMINATION: GENERAL: The patient is alert and oriented x3, not in any acute distress. Well developed, well nourished. HEENT: Pupils are round and equally reacting to light. EOMI. No scleral icterus. No conjunctival pallor. Normocephalic, atraumatic. No pharyngeal erythema. No thyromegaly. CARDIOVASCULAR: S1 and S2 present. No murmurs, rubs, or gallops. PULMONARY: Chest is clear to auscultation, no wheezing or crackles. ABDOMEN: Soft, nontender, nondistended, normoactive bowel sounds. No palpable organomegaly. MUSCULOSKELETAL: No joint swelling or deformity. EXTREMITIES: No cyanosis, clubbing, or pedal edema. postsurgically pack right foot NEUROLOGICAL: Gross neurological examination did not reveal any focal deficits. SKIN: No rashes. - Labs CBC & Chem 7: 01/27/19 14:00 01/30/19 06:42 Labs: Abnormal Lab Results - Last 24 Hours (Table) 01/30/19 Range/Units 06:42 Chloride 109 H (98-107) mmol/L BUN 6 L (9-20) mg/dL Microbiology - Last 24 Hours (Table) 01/27/19 14:00 Blood Culture - Preliminary Blood No Growth after 48 hours Assessment and Plan Plan: -Right foot abscess nondiabetic patient is status post incision and drainage presently on vancomycin and Zosyn and awaiting wound cultures. No foreign body was found may not need Zosyn at this time - essential hypertension, patient does not appear to have essential hypertension not requiring medications -Pes planus. Patient was started on GI and DVT prophylaxis in spite of his age he may not mov e his leg much on the right side because of severe pain
--- NOTE | 2019-01-30 20:11 | PN ---
PROGRESS NOTE DATE OF SERVICE: 01/30/2019. REASON FOR FOLLOWUP: Right foot abscess to evaluate for discharge antibiotics. INTERVAL HISTORY: The patient is a 34-year-old male who has presented to the hospital 01/27/2019 for right foot abscess, apparently started at the site of the callus. The patient was taken to the OR on the and he is status post drainage of this abscess with primary closure of the wound. The patient cultures are currently pending and the patient is currently being treated with vancomycin and Zosyn. Apparently the patient was insisting to be seen by Infectious Disease and to be discharged home on oral antibiotic if possible today. Hence, I was contacted by the patient's nurse to see the patient. On today's evaluation, the patient is afebrile. The patient is breathing comfortably. Pain to the right foot is currently controlled. Only hurts when he walks on it. More of a dull aching pain 2 to 3/10, and no radiation. Currently, he did have very minimal drainage on the dressing. No chest pain, shortness of breath or cough. No abdominal pain. No diarrhea. REVIEW OF SYSTEMS: Positive points mentioned in HPI. Rest of the systems negative. Past medical and surgical history reviewed. MEDICATIONS: Reviewed. Currently on vancomycin and Zosyn. PHYSICAL EXAMINATION: Blood pressure 143/91 with a pulse of 69, temperature 98.3. He is 99% on room air. General description is a middle aged male up in the couch in no distress. HEENT examination: No pallor or scleral icterus. Oral mucosa membranes are dry. Neck trachea central. Lungs unlabored breathing. Clear to auscultation anteriorly. Heart S1, S2. Regular rate and rhythm. Abdomen soft, no tenderness. Right foot plantar aspect: The wound has been stitched. Minimal tenderness on palpation. No foul smelling drainage. Neurologically: Patient is awake, alert, oriented times three. Mood and affect normal. LABS: BUN of 6, creatinine 0.79. Vancomycin trough was 12.4. Wound culture showing a gram- positive cocci. DIAGNOSTIC IMPRESSION AND PLAN: Patient with right foot abscess status post drainage started with possible infected callus with a Gram stain showing a gram-positive cocci, more likely a staph infection. With no evidence of any gram-negative infection, we will discontinue the Diflucan, Zosyn and keep the patient on vancomycin. Patient advised to stay in the hospital until the cultures finalized to which the patient finally agreed. The patient will be evaluated tomorrow by Dr. Ansari. All his questions and concerns were answered. JAZZMINEL / RASHMIN: [id number] /
[2019-01-31] MEDS: VANCOMYCIN 1,500 MG in SODIUM CHLORIDE 0.9% 250 ML IVPB SCH (03:58)
[2019-01-31 07:12] VITALS: BP 131/73; PULSE 67; RESP 15; TEMP 98
[2019-01-31] MEDS: HEPARIN SODIUM,PORCINE 5,000 UNIT/ML 1 ML VIAL SQ SCH (08:23)
[2019-01-31] MEDS: PANTOPRAZOLE 40 MG TABLET PO SCH (08:24)
[2019-01-31] MEDS: traMADol 50 MG TAB PO SCH ×2 (08:24→11:57)
[2019-01-31] MEDS: NICOTINE 21MG/24HR PATCH TRANSDERM SCH (08:24)
--- NOTE | 2019-01-31 10:27 | P.PN ---
Subjective Progress Note Date: 01/31/19 Principal diagnosis: Status post incision and drainage with irrigation and debridement right foot abscess Patient evaluated at bedside, he has family present. He is resting comfortably. His pain is well-controlled at this time. He denies any fevers or chills at this time. Objective - Vital Signs Vital signs: Vital Signs Temp 98.0 F 01/31/19 07:00 Pulse 67 01/31/19 07:00 Resp 15 01/31/19 08:00 BP 131/73 01/31/19 07:00 Pulse Ox 99 01/31/19 07:00 Intake & Output 01/30/19 01/31/19 01/31/19 18:59 06:59 18:59 Intake Total 550 155 Balance 550 155 Intake: Intake, IV Titration 250 Amount Vancomycin 1,500 mg In 250 Sodium Chloride 0.9% 250 ml @ 125 mls/hr IVPB Q8H [facility]ELVI Rx#:[id number] Oral 300 155 Other: # Voids 3 1 - Exam Right lower extremity: Postoperative bandages removed, no active drainage present. Stitches are all in good position. He is able to wiggle toes and no difficulty. His calf is soft, no tenderness with palpation. His sensory exam to light touch proximal distal to the bandage are intact. - Labs CBC & Chem 7: 01/27/19 14:00 01/30/19 06:42 Labs: Microbiology - Last 24 Hours (Table) 01/28/19 19:03 Anaerobic Culture - Preliminary Foot - Right 01/28/19 19:03 Gram Stain - Final Foot - Right Wound Culture - Final 01/27/19 14:00 Blood Culture - Preliminary Blood No Growth after 72 hours Assessment and Plan Plan: Assessment: 1. Postop day #3 status post incision and drainage with irrigation and debridement right foot abscess Plan: Daily dressing changes Nonweightbearing right lower extremity, utilize crutches Pain control, continue to utilize oral medication GI and DVT prophylaxis, continue current medication Waiting on culture results Other medical service technician recommendations Plan for discharge home today Time with Patient: Less than 30
[2019-01-31] MEDS ORDERED: VANCOMYCIN TROUGH DUE 1 EACH MISC MISCELLANE ONE (11:00)
--- NOTE | 2019-02-01 23:05 | DS ---
DISCHARGE SUMMARY DATE OF DISCHARGE: 01/31/2019 CHIEF COMPLAINT: Abscess in the right foot. HISTORY OF PRESENT ILLNESS AND PHYSICAL EXAMINATION: Details of this man's history and physical can be found in the initial workup. LABORATORY STUDIES: While he was in the hospital he had laboratory studies, details of which can be found in the laboratory section of his chart. COURSE IN THE HOSPITAL: After admission he was placed on bedrest, started on intravenous fluids and IV antibiotics, and cellulitis improved. He was stable enough that it was felt he could go home on January 31. He will go home on Keflex 500 mg q.i.d. and follow up in the office in a day or two. FINAL DIAGNOSIS: Abscess and cellulitis of the right foot. OPERATIONS: None. CONSULTATIONS: None. He is improved. He is improved. MMPIERCEL / RASHMIN: [id number] /
== END 2019-01-31 12:04 | disposition home health service (06) | DRG 603 ==
LOC: EC 12:56 → 4MS4W 16:11 → 4SSUR 01-28 19:42 → OBSVTOIN 01-30 13:26
PROVIDERS: ADMIT Family Medicine; ATTEND Family Medicine
PROC: 0H9MXZX Drainage of Right Foot Skin, External Approach, Diagnostic (ICD-10-PCS; 2019-01-28)
PROC: 0HBMXZZ Excision of Right Foot Skin, External Approach (ICD-10-PCS; principal; 2019-01-28 15:40)
DX: L03.115 Cellulitis of right lower limb (principal); L02.611 Cutaneous abscess of right foot; L84 Corns and callosities; F17.210 Nicotine dependence, cigarettes, uncomplicated; I10 Essential (primary) hypertension; L97.509 Non-pressure chronic ulcer of other part of unspecified foot with unspecified severity; M21.40 Flat foot [pes planus] (acquired), unspecified foot; S90.851A Superficial foreign body, right foot, initial encounter; W45.8XXA Other foreign body or object entering through skin, initial encounter; Z82.49 Family history of ischemic heart disease and other diseases of the circulatory system
CPT/HCPCS: 36415; 80048; 80053; 80202; 82565; 83605; 85025; 86140; 87040; 87070; 87075; 87205; 96361; 96365; 96375; 99285

== ENCOUNTER 2021-11-27 12:41 | Emergency (ER) | payer OTHER ==
[2021-11-27 12:50] VITALS: BP 142/84; PULSE 84; RESP 16; TEMP 98.2
[2021-11-27] MEDS ORDERED: DIPH,PERTUS(ACELL)TETVAC-LF 0.5 ML VIAL IM ONE (13:26)
[2021-11-27] MEDS ORDERED: LIDOCAINE 1% INJ 10MG/ML (5 ML VIAL-PF) SQ ONE (13:26)
--- NOTE | 2021-11-27 13:30 | ED ---
Wound/Laceration HPI - General Chief Complaint: Extremity Injury, Upper Stated Complaint: IHS-arm injury Time Seen by Provider: 11/27/21 13:21 Source: patient, RN notes reviewed Mode of arrival: ambulatory Limitations: no limitations - History of Present Illness Initial Comments: This is a 36-year-old male who presents to the emergency department for a l aceration to the right arm. He was trying to clean a brass bar at work when he acquired the laceration. He has the arm bandaged and wrapped on arrival. Unsure when his last tetanus vaccine was. Denies any fevers, chills, sore throat, cough, dyspnea, chest pain, palpitations, abdominal pain, nausea, vomiting, diarrhea, back pain, or headaches. Extremity Location: Right: Forearm Place: work Patient Tetanus UTD: No Context: accidental Treatments Prior to Arrival: bandage - Related Data Home Medications Medication Instructions Recorded Confirmed No Known Home Medications 11/27/21 11/27/21 Previous Rx's Medication Instructions Recorded Cephalexin [Keflex] 1,000 mg PO Q12HR 5 Days #20 cap 11/27/21 Allergies Allergy/AdvReac Type Severity Reaction Status Date / Time No Known Allergies Allergy Verified 11/27/21 14:14 Review of Systems ROS Statement: Those systems with pertinent positive or pertinent negative responses have been documented in the HPI. ROS Other: All systems not noted in ROS Statement are negative. Past Medical History Past Medical History: Hypertension History of Any Multi-Drug Resistant Organisms: None Reported Past Surgical History: Orthopedic Surgery Additional Past Surgical History / Comment(s): previous left foot sx Past Anesthesia/Blood Transfusion Reactions: No Reported Reaction Past Psychological History: No Psychological Hx Reported Smoking Status: Never smoker Past Alcohol Use History: Daily Past Drug Use History: Marijuana - Past Family History Mother Family Medical History: Hypertension General Exam Limitations: no limitations General appearance: alert, in no apparent distress Head exam: Present: atraumatic, normocephalic, normal inspection Respiratory exam: Present: normal lung sounds bilaterally. Absent: respiratory distress, wheezes, rales, rhonchi, stridor Cardiovascular Exam: Present: regular rate, normal rhythm, normal heart sounds. Absent: systolic murmur, diastolic murmur, rubs, gallop, clicks Neurological exam: Present: alert, oriented X3, CN II-XII intact Psychiatric exam: Present: normal affect, normal mood Skin exam: Present: warm, other (4 cm laceration to the dorsal right forearm. Active bleeding.) Course Vital Signs 11/27/21 12:45 Temperature 98.2 F Pulse Rate 84 Respiratory 16 Rate Blood Pressure 142/84 O2 Sat by Pulse 99 Oximetry Procedures - Laceration Laceration #1 Consent Obtained: verbal consent Indication: laceration Site: upper extremity Size (cm): 4 Description: linear Depth: simple, single layer Sedation/Analgesia: none Anesthetic Used: lidocaine 1% Anesthesia Technique: local infiltration Amount (mls): 3 Pre-repair: wound explored Type of Sutures: nylon Size of Sutures: 5-0 Number of Sutures: 4 Technique: simple, interrupted Patient Tolerated Procedure: well, no complications Medical Decision Making - Medical Decision Making This is a 36-year-old male who presents to the emergency department for a laceration to the right forearm. Sutures were placed and his tetanus status was updated. Given that the injury was contaminated and occurred inside of a machine, will place the patient on a 5 day course of Keflex. Instructed him to return in 7-10 days for suture removal. Return precautions reviewed in depth, the patient is instructed to return to the emergency department with any new, worsening, or concerning symptoms. Patient verbalized understanding. This case was discussed in detail with the attending ED physician. Presentation, findings, and treatment plan discussed in detail as well. Disposition Clinical Impression: Forearm laceration Disposition: HOME SELF-CARE Instructions (If sedation given, give patient instructions): Care For Your S titches (ED), Laceration (ED) Additional Instructions: Return to the emergency department with any new, worsening, or concerning symptoms, and in 10 days for suture removal. Take the antibiotic as prescribed. Prescriptions: Cephalexin [Keflex] 1,000 mg PO Q12HR 5 Days #20 cap Is patient prescribed a controlled substance at d/c from ED?: No Referrals: None,Stated [Primary Care Provider] - 1-2 days
== END 2021-11-27 14:33 | disposition home or self-care (01) ==
LOC: EC 12:41
DX: S51.811A Laceration without foreign body of right forearm, initial encounter (principal); Z23 Encounter for immunization; I10 Essential (primary) hypertension; Z72.89 Other problems related to lifestyle; W26.8XXA Contact with other sharp object(s), not elsewhere classified, initial encounter; Y99.0 Civilian activity done for income or pay; Y92.89 Other specified places as the place of occurrence of the external cause
CPT/HCPCS: 90715; 99283; 12002; 90471; J2001